=== PATIENT | female | born 1990 | race Two or more races ===

== ENCOUNTER 2024-08-18 12:25 | Emergency (ER) | payer OTHER ==
[~2024-08-18] VITALS: Ht 152.4 cm; Wt 68.0 kg
[2024-08-18] MEDS ORDERED: HUMALOG100 UNIT/2 SQ (14:15)
[2024-08-18] MEDS ORDERED: HUMULIN N100 UNIT/2 (14:15)
[2024-08-18 16:44] LABS: HEMATOCRIT 34.5 % (36.0-45.00); HEMOGLOBIN 12.1 g/dL (12.0-15.00); MEAN CELL VOLUME 91.5 fL (80.00-100.00); MEAN CORPUSCULAR HEMOGLOBIN 32.2 pg (27.00-32.0); MEAN CORPUSCULAR HGB CONC 35.2 g/dl (32.0-36.0); PLATELET COUNT 342 K/uL (150-450); RED BLOOD COUNT 3.76 M/uL (4.00-6.00); RED CELL DISTRIBUTION WIDTH 13.6 % (11.5-14.5)
[2024-08-18] MEDS ORDERED: ACETAMINOPHEN 500 MG GEL..CAP PO ONE ×2 (17:00→17:06)
[2024-08-18 17:02] LABS: ALBUMIN 3.3 gm/dL (3.4-5.0); BILIRUBIN TOTAL 0.4 mg/dL (0.3-1.2); CALCIUM 9.7 mg/dL (8.5-10.1); CREATININE SERUM 0.48 mg/dL (0.55-1.02); GFR 148.94; GLOBULINA 4.4 G/DL (2.4-3.5); POTASSIUM 3.72 mEq/L (3.5-5.1); TOTAL PROTEIN 7.7 gm/dL (6.4-8.2)
[2024-08-18 17:23] LABS: PH,URINE 5.5 (5.0-8.0); URINE APPEARANCE Cloudy; URINE BILIRRUBIN Negative (NEGATIVE); URINE BLOOD Negative; URINE COLOR Yellow; URINE GLUCOSE Negative (NEGATIVE); URINE LEUKOCYTE Small; URINE NITRATE Negative; URINE PROTEIN Trace (NEGATIVE)
[2024-08-18 17:24] LABS: URINE BACTERIA 3981.4 uL (0.0-1933); URINE RBC 57.5 uL (0.0-20.8); URINE WBC 270.2 uL (0.0-23.2)
[2024-08-18 17:50] LABS: URINE CAST 1.03 uL (0.0-1.40); URINE KETONE >=160 (NEGATIVE)
[2024-08-18 17:51] LABS: URINE MUCUS MODERATE; URINE TRICHOMONAS FEW
[2024-08-18] MEDS ORDERED: MACROBID 100 M100 MG PO (18:16)
== END 2024-08-18 18:58 | disposition home or self-care (01) ==
LOC: ER 12:27
PROVIDERS: Emergency Medicine
DX: D25.9 Leiomyoma of uterus, unspecified (principal); O23.40 Unspecified infection of urinary tract in pregnancy, unspecified trimester; O26.892 Other specified pregnancy related conditions, second trimester; R10.2 Pelvic and perineal pain; Z20.822 Contact with and (suspected) exposure to COVID-19; E11.9 Type 2 diabetes mellitus without complications; Z3A.17 17 weeks gestation of pregnancy